=== PATIENT | male | born 1950 | race Caucasian/White ===

== ENCOUNTER 2025-02-06 20:45 | Emergency (ER) | payer MEDICARE, SELFPAY ==
[2025-02-06 20:50] VITALS: BP 151/98
[2025-02-06 21:19] LABS: Hematocrit 45.6 % (39.0-52.0); Hemoglobin 16.2 g/dL (13.0-18.0); Mean Corp Hgb Conc. 35.5 g/dL (33.0-37.0); Mean Corpuscular Volume 89.1 fL (80.0-94.0); Nucleated Red Blood Cells % 0 % (-); Platelet Count 280 10^3/uL (130-400); Red Cell Dist. Width 12.6 % (11.5-14.5)
[2025-02-06 21:26] LABS: APTT 28.5 Sec (23.4-35.0); INR 1.09; PT 14.4 Sec (11.4-14.6)
[2025-02-06 21:40] LABS: ALT (SGPT) 21 U/L (0-50); AST (SGOT) 23 U/L (17-59); Albumin 4.6 g/dl (3.5-5.0); Alkaline Phosphatase 66 U/L (38-126); Blood Urea Nitrogen 17 mg/dl (9-20); Calcium 9.7 mg/dl (8.4-10.2); Carbon Dioxide 25 mmol/L (22-30); Chloride 107 mmol/L (98-107); Glucose 115 mg/dl (70-99); Potassium 3.8 mmol/L (3.5-5.1); Sodium 139 mmol/L (135-145); Total Protein 8.4 g/dl (6.3-8.2); eGFR > 60.00
[2025-02-06 22:32] VITALS: BP 159/87
[2025-02-06 23:00] VITALS: BP 137/78
--- NOTE | 2025-02-06 23:15 | EDRN ---
Patient ambulated to the restroom and back in bed resting comfortably at this time.
--- NOTE | 2025-02-06 23:35 | ED.GENMED ---
History of Present Illness
<Nica Kaye MD, Resident - Last Filed: 02/07/25 00:58>
General
Chief Complaint: Extremity Pain (non-traumatic)
Source: patient
Exam Limitations: none
Time Seen by Provider: 02/06/25 23:16
History of Present Illness
History of Present Illness:
Patient is a 74-year-old male who presents to the emergency department with right lower extremity pain and numbness that started in the morning. The patient was in his normal state of health the evening prior to his presentation when he went to bed
but unfortunately woke up with sore leg pain that is reminiscent to a prior DVT episode he has had in the past. 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 His last DVT was 5 years ago. His right
calf is currently suffering from achy pain but does not stop him from ambulating or doing his daily activities. He did not have any inciting trauma or event that led to his leg pain. He does not have any shortness of breath or chest pain. He
denies any palpitations or feelings of irregular heartbeat. He takes 2.5 mg of Eliquis twice daily. He states that he had a coronary calcium score conducted in the outpatient setting and was scored at a 5. Patient does not take any statin.
Past History
<Nica Kaye MD, Resident - Last Filed: 02/07/25 00:58>
Past History
ED Past Medical History: Hypercholesterolemia, Other (Lung Sarcoidosis), Other (Cholelithiasis) and Other (Pulmonary embolism and DVTs)
Social History
Tobacco: Non-smoker
Alcohol: Occasional
Drug: None
Personal:
Living: with family
Review of Systems
<Nica Kaye MD, Resident - Last Filed: 02/07/25 00:58>
Review of Systems
Constitutional: Reports no symptoms
EENT: Reports no symptoms
Respiratory: Reports no symptoms
Cardiac: Reports no symptoms
ABD/GI: Reports no symptoms
: Reports no symptoms
Musculoskeletal: Reports muscle pain (Right lower calf pain)
Skin: Reports no symptoms
Neurological: Reports no symptoms
Endocrine: Reports no symptoms
Hematologic/Lymphatic: Reports no symptoms
Psychiatric: Reports no symptoms
Phy Exam
<Nica Kaye MD, Resident - Last Filed: 02/07/25 00:58>
General Physical Exam
General Presentation: well appearing and no apparent distress
General age: appears stated age
General Skin: warm and dry
General Habitus: normal
General Mental: alert
General Hydration: appears well hydrated
Cardiovascular Exam
Cardiovascular Exam: regular rate/rhythm, no edema, no gallop, no JVD and no murmur
Pulmonary Exam
Pulmonary Exam: lungs clear, no respiratory distress, no rales, chest non tender, no crackles, no rhonchi, no stridor, no wheezing and no cough
Musculoskeletal Exam
Musculoskeletal Exam: full ROM
Psychiatric Exam
Psychiatric Exam: normal mood/affect
Course
<Nica Kaye MD, Resident - Last Filed: 02/07/25 00:58>
Orders/Labs/Results
Orders:
Orders
02/06/25 20:56
Periph Venous Lwr Ext Rt US [US Periph Venous LOWER Ext RT] Urgent
Comment:
Reason For Exam: R?O DVT
02/06/25 21:06
ECG [Electrocardiogram (*1)] Urgent
Reason for Study: Other
Other Reason for Exam: dvt
Cardiology Consult: Unknown
EKG- Treatment ONCE
02/06/25 21:07
Complete Blood Count/With Diff Urgent
Comprehensive Metabolic Panel Urgent
D-Dimer Urgent
Comment: ADD ON
PT/INR [Prothrombin Time] Urgent
PTT Urgent
02/06/25 23:49
Add On- LAB Urgent
Tests Added?: D-Dimer
Abnormal Lab Results
02/06/25
21:07
MCH 31.6 H pg
(27.0-31.0)
Absolute Monos (auto) 0.9 H 10^3/uL
(0.1-0.6)
Monocytes % 10.7 H %
(1.7-9.3)
Glucose 115 H mg/dl
(70-99)
Total Protein 8.4 H g/dl
(6.3-8.2)
02/06/25 21:07
02/06/25 21:07
Vital Signs
Initial and Last Documented VS:
Initial Vital Signs
Temp Pulse Resp BP Pulse Ox
36.8 C 107 20 151/98 97
02/06/25 20:50 02/06/25 20:50 02/06/25 20:50 02/06/25 20:50 02/06/25 20:50
Last Documented Vital Signs
Temp Pulse Resp BP Pulse Ox
36.8 C 76 20 124/75 93
02/06/25 20:50 02/07/25 00:45 02/07/25 00:45 02/07/25 00:16 02/07/25 00:45
<Yahir Bland, DO - Last Filed: 02/07/25 00:54>
Orders/Labs/Results
Orders:
Orders
02/06/25 20:56
Periph Venous Lwr Ext Rt US [US Periph Venous LOWER Ext RT] Urgent
Comment:
Reason For Exam: R?O DVT
02/06/25 21:06
ECG [Electrocardiogram (*1)] Urgent
Reason for Study: Other
Other Reason for Exam: dvt
Cardiology Consult: Unknown
EKG- Treatment ONCE
02/06/25 21:07
Complete Blood Count/With Diff Urgent
Comprehensive Metabolic Panel Urgent
D-Dimer Urgent
Comment: ADD ON
PT/INR [Prothrombin Time] Urgent
PTT Urgent
02/06/25 23:49
Add On- LAB Urgent
Tests Added?: D-Dimer
Abnormal Lab Results
02/06/25
21:07
MCH 31.6 H pg
(27.0-31.0)
Absolute Monos (auto) 0.9 H 10^3/uL
(0.1-0.6)
Monocytes % 10.7 H %
(1.7-9.3)
Glucose 115 H mg/dl
(70-99)
Total Protein 8.4 H g/dl
(6.3-8.2)
02/06/25 21:07
02/06/25 21:07
Vital Signs
Initial and Last Documented VS:
Initial Vital Signs
Temp Pulse Resp BP Pulse Ox
36.8 C 107 20 151/98 97
02/06/25 20:50 02/06/25 20:50 02/06/25 20:50 02/06/25 20:50 02/06/25 20:50
Last Documented Vital Signs
Temp Pulse Resp BP Pulse Ox
36.8 C 76 20 124/75 93
02/06/25 20:50 02/07/25 00:45 02/07/25 00:45 02/07/25 00:16 02/07/25 00:45
<Nica Kaye MD, Resident - Last Filed: 02/07/25 00:58>
*Pulse Oximetry
SaO2: 93
Oxygen Mode of Delivery: Room air
Patient hypoxic: no
*Critical Care Note
Total Time (30-74mins, 75-104mins- exclusive of procedures): 60
<Nica Kaye MD, Resident - Last Filed: 02/07/25 00:58>
Update Note
Update Note:
Problem List:
Right lower calf soreness/pain
Plan:
Ultrasound of the right lower extremity to rule out DVT
EKG to rule out arrhythmia
CBC
CMP
PT/INR
PTT
D-dimer
Differential Diagnoses:
DVT
Pulmonary embolism
Atrial fibrillation
Musculoskeletal pain
Radiology: Ultrasound of the right lower extremity without DVT
EKG: Sinus tachycardia, possible left atrial enlargement, left axis deviation
Labs:
CBC unremarkable
PT INR within normal limits
PTT within normal limit
CMP unremarkable
Updates:
CBC unremarkable
CMP unremarkable
PT/INR within normal limits
PTT within normal limits
D-dimer within normal limits
Ultrasound of the right lower extremity without DVT
Based on clinical exam findings, lab findings, and imaging there is no suspicion of DVT or PE.
Patient would like to be discharged. There are no barriers that impede the patient from being discharged at the present time.
Patient should follow-up with his primary care provider within 1 week of discharge.
ED Attending Note
<Nica Kaye MD, Resident - Last Filed: 02/07/25 00:58>
-
Portions of this chart may have been created with voice recognition software.� Occasional wrong word or��sound alike� substitutions may have occurred due to the inherent limitations of voice recognition software.
<Yahir Bland DO - Last Filed: 02/07/25 00:54>
ED Attending Note
Patient seen and examined by attending physician: Yes
I performed a history and physical exam of patient and discussed management with resident, I reviewed resident's note and agree with documented findings and plan of care.: Yes
ED Attending Note:
I evaluated the patient at bedside. The patient reports pain at the right calf that feels similar to the time that he had prior DVT. On prior DVT episodes he was not anticoagulated on Eliquis. He has been on Eliquis 2.5 mg twice daily for the
past 5 years and currently ultrasound imaging shows no blood clot. I recommended that he increase Tylenol dosing. Basic labs also unremarkable and of note he had a D-dimer that was 0.28
Note:
CHIEF COMPLAINT(S)
Calf pain.
HISTORY OF PRESENT ILLNESS
The patient is a 74-year-old male who presents with calf pain concentrated in the right calf. The patient reports experiencing similar symptoms in the past when he had blood clots but is currently concerned due to ongoing discomfort. The patient is
already on a lower dose of anticoagulant therapy (Apixaban) and has been using it effectively for the past five years. He denies pain upon palpation of the apple, with pain predominantly noted in the muscular area of the calf. The patient does not
report taking any [id number] medications for relief, though he was advised that a dose of 1,000 milligrams of acetaminophen four times a day is within safe dosing limits for pain management.
EXTERNAL RECORDS REVIEWED
According to recent tests, the patients D-Dimer screening test was negative, and an ultrasound did not show any blood clots.
PHYSICAL EXAM
- Palpation of the calf reveals normal arterial pulses.
- No significant pain upon palpation.
PLAN
The plan is for the patient to continue with current home management. Patient is reassured about the absence of blood clots given the negative D-Dimer and ultrasound results. He is advised on safe dosing for [id number] pain relief with
acetaminophen.
DIFFERENTIAL DIAGNOSIS
The Differential Diagnosis includes, in no particular order and is not limited to:
- Muscle strain
- Tendonitis
- Peripheral artery disease
- Deep vein thrombosis (ruled out by D-Dimer and ultrasound)
- Neuropathy
- Bakers cyst
- Compartment syndrome
- Referred pain from lumbar spine issues
- Cellulitis
- Osteoarthritis
SUMMARY OF ENCOUNTER
The patient was seen in the emergency department for right calf pain. Initial evaluation included a negative D-Dimer test and ultrasound, ruling out deep vein thrombosis. The patient is already on Apixaban, reducing the likelihood of active clot
formation. The patient has strong arterial pulses, and palpation did not reveal significant tenderness. Management included reassurance about the absence of blood clots and guidance on acetaminophen use for pain management.
DISPOSITION
Discharge. The patient will continue his usual regimen and monitor symptoms at home as no signs of acute pathology were noted.
FOLLOW-UP INSTRUCTIONS
The patient is advised to follow up with his primary care physician for ongoing care and monitoring of his symptoms.
MEDICATION RECONCILIATION
- Patient is taking a low dose of Apixaban as previously prescribed.
- Acetaminophen at a maximum dose of 1,000 milligrams four times daily for pain control, if needed.
MEDICAL DECISION MAKING
- Complexity of Data Reviewed: Chronic conditions affecting care include history of blood clots. Differential Diagnoses include: muscle strain, tendonitis, peripheral artery disease, neuropathy, and others.
- Data:
- Category 1: Tests reviewed include negative D-Dimer and negative ultrasound for deep vein thrombosis.
- Risk: Prescription medication management was reviewed with the patient, specifically regarding anticoagulation therapy with Apixaban.
Care is influenced by patients current good response to a lower dose of anticoagulant therapy and the absence of acute findings requiring changes to his management plan.
Discharge Plan
Departure
Patient Disposition: Home (Routine Discharge)
Date of Disposition: 02/07/25
Time of Disposition: 00:55
Patient with high blood pressure during this ER visit?: Yes
Discharge Problem:
Pain of muscle of lower leg
Instructions: Muscle and Bone Pain (DC)
Prescriptions:
No Action
Eliquis 5 mg tablet
2.5 mg PO BID
Rx Instructions:
01/14/23-patient cut these in half cause his copay is high
propranolol 40 mg Tablet
40 mg PO DAILYPRN PRN (Reason: shakes)
calcium carbonate [Tums] 200 mg calcium (500 mg) Tablet,Chewable
200 mg PO BIDPRN PRN (Reason: gerd)
oxycodone 5 mg capsule
5 mg PO Q8H PRN (Reason: severe pain) Qty: 10 0RF
Referrals:
Dereck Hernandez, [Family Provider] - Follow up in 1 week
Interventions
Interventions:
*Risk Screen - Suicide Last Done: 02/06/25 20:50
*General Assessment Last Done: 02/06/25 20:50
*Neglect/Abuse Screening Last Done: 02/06/25 20:50
*ED- Fall Risk Assessment Last Done: 02/06/25 20:50
*ED COVID-19 Vaccine History Last Done: 02/06/25 20:50
ED-Skin Assessment Last Done: 02/06/25 23:26
ED-Peripheral Vascular Assessment Last Done: 02/06/25 23:26
ED-Musculoskeletal Assessment Last Done: 02/06/25 23:26
Discharge Date and Time
Print Language: STATELESS
[2025-02-07 00:16] VITALS: BP 124/75
[2025-02-07 00:19] LABS: D-Dimer 0.28 ug/mlFEU (0.00-0.50)
--- NOTE | 2025-02-07 00:52 | EDRN ---
Dr. Bland at bedside going over results
== END 2025-02-07 01:26 | disposition home or self-care (01) ==
LOC: EMR 20:45
PROVIDERS: EMERGENCY PHYSICIAN Emergency Medicine; FAMILY PHYSICIAN Internal Medicine Geriatric Medicine
DX: M79.18 Myalgia, other site (principal); R03.0 Elevated blood-pressure reading, without diagnosis of hypertension; R00.0 Tachycardia, unspecified; E78.00 Pure hypercholesterolemia, unspecified; D86.0 Sarcoidosis of lung; Z79.01 Long term (current) use of anticoagulants; Z86.718 Personal history of other venous thrombosis and embolism; Z86.711 Personal history of pulmonary embolism
CPT/HCPCS: 99284; 80053; 85025; 85379; 85610; 85730; 93005; 93971